=== PATIENT | male | born 1945 | race Caucasian/White ===

== ENCOUNTER → 2019-04-19 | Outpatient (CLI) | payer OTHER ==
--- NOTE | 2019-04-19 20:39 | Diagnostic Imaging Report ---
Indication: Chronic cough PA and lateral chest There are postop changes from a median sternotomy. There is a right pleural effusion with questionable consolidation in the right lower lung. 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 Impression: Right pleural effusion with questionable right basilar consolidation. This could be secondary to neoplasm or infection. Short-term followup is indicated. Dictated by: Dictated on workstation # [id number]
== END ==
LOC: RAD 15:18
PROVIDERS: ATTEND Nurse Practitioner Family
DX: J90 Pleural effusion, not elsewhere classified (principal); J30.9 Allergic rhinitis, unspecified; N28.9 Disorder of kidney and ureter, unspecified; Z98.890 Other specified postprocedural states
CPT/HCPCS: 71046

== ENCOUNTER 2019-12-09 09:02 | Emergency (ER) | payer OTHER ==
[~2019-12-09] VITALS: Ht 190 cm; Wt 123.1 kg
--- NOTE | 2019-12-09 09:43 | ED General ---
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 [place] 2 d ago today he feels numb all over his says he can't walk takes 30 minutes to move short distance he was apparently at a clinic getting his blood drawn today when he got weak and sort of slumped to the ground he was helped to the ground denies injury denies syncope no chest pain or shortness of breath no fevers no nausea vomiting diarrhea no focal neurologic deficits Allergies and Home Medications Allergies Coded Allergies: amlodipine (Verified Allergy, Unknown, 12/09/19) naproxen (Verified Allergy, Unknown, 12/09/19) niacin (Verified Allergy, Unknown, 12/09/19) pioglitazone (Verified Allergy, Unknown, 12/09/19) rosiglitazone (Verified Allergy, Unknown, 12/09/19) simvastatin (Verified Allergy, Unknown, 12/09/19) Patient Home Medication List Home Medication List Reviewed: Yes Review of Systems Review of Systems Constitutional: No fever; weakness EENTM: no symptoms reported Respiratory: no symptoms reported Cardiovascular: no symptoms reported; No chest pain, No palpitations Gastrointestinal: no symptoms reported; No diarrhea, No vomiting Genitourinary: no symptoms reported, other (says urine output unchanged and no dysuria) Musculoskeletal: no symptoms reported Skin: no symptoms reported Psychiatric/Neurological: No Symptoms Reported Past Ullpbnb-[id number]-Gicqml Hx Patient Social History Recent Foreign Travel: Yes Physical Exam Vital Signs Vital Signs - First Documented 12/09/19 09:20 Temp 36.1 Pulse 76 Resp 16 B/P (MAP) 168/74 (105) Pulse Ox 98 Capillary Refill : Height, Weight, BMI Height: '" Weight: lbs. oz. kg; BMI Method: General Appearance: No Apparent Distress, Chronically ill Eyes: Bilateral Eye PERRL, Bilateral Eye EOMI HEENT: Normal ENT Inspection, Other (tongue dry) Neck: Full Range of Motion, Supple Respiratory: Lungs Clear Cardiovascular: Regular Rate, Rhythm Gastrointestinal: Normal Bowel Sounds, Non Tender, Soft Extremity: Non Tender Neurologic/Psychiatric: Alert, Oriented x3, No Motor/Sensory Deficits, motor checker II- XII Norm as Tested; No Motor Weakness Progress/Results/Core Measures Suspected Sepsis SIRS Temperature: Pulse: Respiratory Rate: Laboratory Tests 12/09/19 09:42: White Blood Count 9.0 Blood Pressure / Mean: Laboratory Tests 12/09/19 09:42: Creatinine 3.06H, INR Comment 1.0, Platelet Count 286, Total Bilirubin < 0.2 Results/Orders Lab Results Laboratory Tests Test 12/09/19 09:42 Range/Units White Blood Count 9.0 4.3-11.0 10^3/uL Red Blood Count 3.99 L 4.35-5.85 10^6/uL Hemoglobin 10.9 L 13.3-17.7 G/DL Hematocrit 34 L 40-54 % Mean Corpuscular Volume 86 80-99 FL Mean Corpuscular Hemoglobin 27 25-34 PG Mean Corpuscular Hemoglobin Concent 32 32-36 G/DL Red Cell Distribution Width 14.6 H 10.0-14.5 % Platelet Count 286 130-400 10^3/uL Mean Platelet Volume 10.1 7.4-10.4 FL Neutrophils (%) (Auto) 72 42-75 % Lymphocytes (%) (Auto) 14 12-44 % Monocytes (%) (Auto) 7 0-12 % Eosinophils (%) (Auto) 4 0-10 % Basophils (%) (Auto) 1 0-10 % Neutrophils # (Auto) 6.5 1.8-7.8 X 10^3 Lymphocytes # (Auto) 1.3 1.0-4.0 X 10^3 Monocytes # (Auto) 0.6 0.0-1.0 X 10^3 Eosinophils # (Auto) 0.4 H 0.0-0.3 10^3/uL Basophils # (Auto) 0.1 0.0-0.1 10^3/uL Prothrombin Time 13.9 12.2-14.7 SEC INR Comment 1.0 0.8-1.4 Sodium Level 142 135-145 MMOL/L Potassium Level 4.8 3.6-5.0 MMOL/L Chloride Level 113 H 98-107 MMOL/L Carbon Dioxide Level 19 L 21-32 MMOL/L Anion Gap 10 5-14 MMOL/L Blood Urea Nitrogen 34 H 7-18 MG/DL Creatinine 3.06 H 0.60-1.30 MG/DL Estimat Glomerular Filtration Rate 20 BUN/Creatinine Ratio 11 Glucose Level 113 H 70-105 MG/DL Calcium Level 8.6 8.5-10.1 MG/DL Corrected Calcium 9.4 8.5-10.1 MG/DL Total Bilirubin < 0.2 0.1-1.0 MG/DL Aspartate Amino Transf (AST/SGOT) 13 5-34 U/L Alanine Aminotransferase (ALT/SGPT) 7 0-55 U/L Alkaline Phosphatase 106 40-136 U/L Total Protein 5.9 L 6.4-8.2 GM/DL Albumin 3.0 L 3.2-4.5 GM/DL My Orders Orders - KYRA BEE MD Iv Heplock-Insert (Order) (12/09/19 09:29) Cbc With Automated Diff (12/09/19 09:29) Comprehensive Metabolic Panel (12/09/19 09:29) Chest Pa/Lat (2 View) (12/09/19 09:29) Ekg Tracing (12/09/19 09:29) Monitor-Rhythm Ecg Trace Only (12/09/19 09:29) Protime With Inr (12/09/19 09:29) Orthostatic Vital Signs (Adult (12/09/19 09:44) Ct Head Wo (12/09/19 09:44) Ns Iv 1000 Ml (Sodium Chloride 0.9%) (12/09/19 10:15) Ns (Ivpb) (Sodium Chloride 0.9%) (12/09/19 10:10) Medications Given in ED Current Medications Medications Dose Ordered Sig/Margaret Route Start Time Stop Time Status Last Admin Dose Admin Sodium Chloride 250 ml @ ud STK-MED ONCE .ROUTE 12/09/19 10:10 12/09/19 10:16 DC 12/09/19 11:00 250 MLS/HR Vital Signs/I&O 12/09/19 12/09/19 09:20 10:39 Temp 36.1 Pulse 76 73 79 84 Resp 16 B/P (MAP) 168/74 (105) 167/77 (107) 180/79 (112) 127/73 (91) Pulse Ox 98 Capillary Refill : Progress Note : Progress Note Vitals are normal O2 sat normal EKG shows a sinus rhythm at 72 with no acute changes hemoglobin 10.9 which is patient's baseline white count 9000 chemistries actually show significant improvement with the BUN 34 creatinine 3.06 he's been running creatinines more around 4 Potassium 4.82 is decreased at 19 INR is 1.0 Chest x-ray shows cardiomegaly with postoperative changes and a right basilar pleural effusion CT head no acute findings pleural effusion is old creat is better K+ OK giving 250 NS IV (BP drops on standing) no reason for admission or further intervention Departure Impression Primary Impression: Weakness Additional Impressions: Renal failure Qualified Codes: N18.9 - Chronic kidney disease, unspecified Dehydration Disposition: 01 HOME, SELF-CARE Condition: Stable Departure-Patient Inst. Decision time for Depature: 11:25 Referrals: NO,LOCAL PHYSICIAN (PCP/Family) Primary Care Physician Patient Instructions: Generalized Weakness (DC), Kidney Failure, Dehydration, Adult (DC) KYRA BEE MD Dec 09, 2019 09:43
[2019-12-09 09:51] LABS: BASOPHILS % (AUTO) 1 % (0-10); EOSINOPHILS % (AUTO) 4 % (0-10); HEMATOCRIT 34 % (40-54); HEMOGLOBIN 10.9 G/DL (13.3-17.7); LYMPHOCYTES % (AUTO) 14 % (12-44); MEAN CORPUSCULAR HEMOGLOBIN 27 PG (25-34); MEAN CORPUSCULAR HGB CONC 32 G/DL (32-36); MEAN CORPUSCULAR VOLUME 86 FL (80-99); MEAN PLATELET VOLUME 10.1 FL (7.4-10.4); MONOCYTES % (AUTO) 7 % (0-12); NEUTROPHILS % (AUTO) 72 % (42-75); PLATELET COUNT 286 10^3/uL (130-400); RED CELL DISTRIBUTION WIDTH 14.6 % (10.0-14.5)
[2019-12-09 09:52] LABS: BASOPHILS # (AUTO) 0.1 10^3/uL (0.0-0.1); EOSINOPHILS # (AUTO) 0.4 10^3/uL (0.0-0.3); LYMPHOCYTES # (AUTO) 1.3 X 10^3 (1.0-4.0); MONOCYTES # (AUTO) 0.6 X 10^3 (0.0-1.0); NEUTROPHILS # (AUTO) 6.5 X 10^3 (1.8-7.8)
[2019-12-09 10:08] LABS: PROTHROMBIN TIME PATIENT 13.9 SEC (12.2-14.7)
[2019-12-09] MEDS ORDERED: NS (IVPB) 250 ML ONE (10:10)
--- NOTE | 2019-12-09 10:17 | Diagnostic Imaging Report ---
PROCEDURE: CT head without contrast. TECHNIQUE: Multiple contiguous axial images were obtained through the brain without the use of intravenous contrast. Auto Exposure Controls were utilized during the CT exam to meet ALARA standards for radiation dose reduction. INDICATION: Weakness. COMPARISON: No prior studies are available for comparison. FINDINGS: Ventricles and sulci are prominent consistent with cerebral atrophy. No sulcal effacement or midline shift is detected. No acute intra-axial or extra-axial hemorrhage is detected. Cisterns are patent. Visualized paranasal sinuses are clear. IMPRESSION: Cerebral atrophy. No acute intracranial process is detected. Dictated by: Dictated on workstation # [id number]
--- NOTE | 2019-12-09 10:19 | Diagnostic Imaging Report ---
INDICATION: Weakness. TIME OF EXAM: 10:07 a.m. COMPARISON: Correlation is made with prior chest from 04/19/2019. FINDINGS: The heart is enlarged but stable. Changes of median sternotomy are noted. Chronic pleural fluid or pleural thickening in the right base is again noted. Lungs appear to be clear. The pulmonary vascularity is unremarkable. There is no pneumothorax. IMPRESSION: Overall stable appearance of the chest when compared with prior exam from 04/19/2019. Dictated by: Dictated on workstation # [id number]
[2019-12-09 10:22] LABS: ALANINE AMINOTRANSFERASE 7 U/L (0-55); ALKALINE PHOSPHATASE 106 U/L (40-136); BILIRUBIN,TOTAL < 0.2 MG/DL (0.1-1.0); BUN/CREATININE RATIO 11; CALCIUM 8.6 MG/DL (8.5-10.1); CARBON DIOXIDE 19 MMOL/L (21-32); CHLORIDE 113 MMOL/L (98-107); CREATININE SERUM 3.06 MG/DL (0.60-1.30); GFR ESTIMATED 20; GLUCOSE 113 MG/DL (70-105); POTASSIUM 4.8 MMOL/L (3.6-5.0); SODIUM 142 MMOL/L (135-145); TOTAL PROTEIN 5.9 GM/DL (6.4-8.2)
[2019-12-09] MEDS: NS IV 1000 ML 1,000 ML IV ONE ×2 (10:38→11:16)
[2019-12-09 10:39] VITALS: BP_SYST 127; BP_SYST 167; BP_SYST 180; BP_DIAS 73; BP_DIAS 77; BP_DIAS 79
[2019-12-09 11:31] VITALS: BP 164/82
== END 2019-12-09 11:53 | disposition home or self-care (01) ==
LOC: EDUNIT# 09:02 → ER FS 09:04
DX: N19 Unspecified kidney failure (principal); E86.0 Dehydration; Z89.512 Acquired absence of left leg below knee; Z95.1 Presence of aortocoronary bypass graft; Z88.6 Allergy status to analgesic agent; Z88.8 Allergy status to other drugs, medicaments and biological substances
CPT/HCPCS: 36415; 70450; 71046; 80053; 85025; 85610; 93005; 93041

== ENCOUNTER → 2020-02-16 | Outpatient (CLI) | payer OTHER | LOC: LAB FS 20:23 | DX: I48.91 Unspecified atrial fibrillation (principal) ==

== ENCOUNTER → 2020-02-17 | Outpatient (CLI) | payer OTHER ==
[2020-02-17 17:21] LABS: INR 2.2 (0.8-1.4); PROTHROMBIN TIME PATIENT 25.8 SEC (12.2-14.7)
== END ==
LOC: LAB FS 16:58
PROVIDERS: ATTEND Internal Medicine
DX: I48.91 Unspecified atrial fibrillation (principal)
CPT/HCPCS: 36415; 85610

== ENCOUNTER → 2020-02-17 | Outpatient (CLI) | payer OTHER | LOC: LAB FS 14:13 | PROVIDERS: ATTEND Nurse Practitioner | DX: I48.91 Unspecified atrial fibrillation (principal) ==

== ENCOUNTER → 2020-03-03 | Outpatient (CLI) | payer OTHER ==
[2020-03-03 15:31] LABS: INR 1.9 (0.8-1.4); PROTHROMBIN TIME PATIENT 23.1 SEC (12.2-14.7)
== END ==
LOC: LAB FS 15:08
PROVIDERS: ATTEND Internal Medicine
DX: I48.0 Paroxysmal atrial fibrillation (principal)
CPT/HCPCS: 36415; 85610

== ENCOUNTER → 2020-03-31 | Outpatient (CLI) | payer OTHER ==
[2020-03-31 16:56] LABS: INR 2.1 (0.8-1.4); PROTHROMBIN TIME PATIENT 23.4 SEC (12.2-14.7)
== END ==
LOC: LAB FS 16:25
PROVIDERS: ATTEND Internal Medicine
DX: I48.92 Unspecified atrial flutter (principal)
CPT/HCPCS: 36415; 85610

== ENCOUNTER → 2020-05-01 | Outpatient (CLI) | payer OTHER ==
[2020-05-01 13:36] LABS: INR 2.7 (0.8-1.4); PROTHROMBIN TIME PATIENT 29.1 SEC (12.2-14.7)
== END ==
LOC: LAB FS 13:05
PROVIDERS: ATTEND Internal Medicine
DX: I48.0 Paroxysmal atrial fibrillation (principal)
CPT/HCPCS: 36415; 85610

== ENCOUNTER → 2020-05-30 | Outpatient (CLI) | payer OTHER ==
[2020-05-30 16:45] LABS: INR 4.3 (0.8-1.4); PROTHROMBIN TIME PATIENT 41.1 SEC (12.2-14.7)
== END ==
LOC: LAB FS 05-29 14:51
PROVIDERS: ATTEND Internal Medicine
DX: I48.0 Paroxysmal atrial fibrillation (principal); Z79.01 Long term (current) use of anticoagulants
CPT/HCPCS: 36415; 85610

== ENCOUNTER → 2020-06-07 | Outpatient (CLI) | payer OTHER ==
[2020-06-07 19:56] LABS: PROTHROMBIN TIME PATIENT 13.9 SEC (12.2-14.7)
== END ==
LOC: LAB FS 15:27
PROVIDERS: ATTEND Internal Medicine
DX: I48.0 Paroxysmal atrial fibrillation (principal); Z79.01 Long term (current) use of anticoagulants
CPT/HCPCS: 36415; 85610

== ENCOUNTER → 2020-06-14 | Outpatient (CLI) | payer OTHER ==
[2020-06-14 12:43] LABS: INR 1.2 (0.8-1.4); PROTHROMBIN TIME PATIENT 15.2 SEC (12.2-14.7)
== END ==
LOC: LAB FS 11:58
PROVIDERS: ATTEND Internal Medicine
DX: I48.0 Paroxysmal atrial fibrillation (principal); Z79.01 Long term (current) use of anticoagulants
CPT/HCPCS: 36415; 85610

== ENCOUNTER → 2020-06-20 | Outpatient (CLI) | payer OTHER ==
[2020-06-20 17:03] LABS: INR 1.4 (0.8-1.4); PROTHROMBIN TIME PATIENT 17.4 SEC (12.2-14.7)
== END ==
LOC: LAB FS 16:41
PROVIDERS: ATTEND Internal Medicine
DX: Z01.89 Encounter for other specified special examinations (principal); Z79.01 Long term (current) use of anticoagulants
CPT/HCPCS: 36415; 85610

== ENCOUNTER → 2020-07-01 | Outpatient (CLI) | payer OTHER ==
[2020-07-01 15:50] LABS: INR 3.4 (0.8-1.4)
== END ==
LOC: LAB FS 15:14
PROVIDERS: ATTEND Family Medicine
DX: Z79.01 Long term (current) use of anticoagulants (principal)
CPT/HCPCS: 36415; 85610

== ENCOUNTER → 2020-07-04 | Outpatient (CLI) | payer OTHER ==
[2020-07-04 19:13] LABS: INR 1.1 (0.8-1.4); PROTHROMBIN TIME PATIENT 14.2 SEC (12.2-14.7)
== END ==
LOC: LAB FS 16:22
PROVIDERS: ATTEND Internal Medicine
DX: I48.0 Paroxysmal atrial fibrillation (principal)
CPT/HCPCS: 36415; 85610

== ENCOUNTER → 2020-07-12 | Outpatient (CLI) | payer OTHER ==
[2020-07-12 11:28] LABS: INR 1.1 (0.8-1.4); PROTHROMBIN TIME PATIENT 14.1 SEC (12.2-14.7)
== END ==
LOC: LAB FS 10:46
PROVIDERS: ATTEND Internal Medicine
DX: I48.0 Paroxysmal atrial fibrillation (principal)
CPT/HCPCS: 36415; 85610

== ENCOUNTER → 2020-07-25 | Outpatient (CLI) | payer OTHER ==
[2020-07-25 15:55] LABS: PROTHROMBIN TIME PATIENT 13.8 SEC (12.2-14.7)
== END ==
LOC: LAB FS 15:29
PROVIDERS: ATTEND Internal Medicine
DX: I48.0 Paroxysmal atrial fibrillation (principal); Z79.01 Long term (current) use of anticoagulants
CPT/HCPCS: 36415; 85610

== ENCOUNTER → 2020-08-01 | Outpatient (CLI) | payer OTHER ==
[2020-08-01 15:03] LABS: INR 2.6 (0.8-1.4); PROTHROMBIN TIME PATIENT 27.8 SEC (12.2-14.7)
== END ==
LOC: LAB FS 14:07
PROVIDERS: ATTEND Internal Medicine
DX: I48.0 Paroxysmal atrial fibrillation (principal); Z79.01 Long term (current) use of anticoagulants
CPT/HCPCS: 36415; 85610

== ENCOUNTER → 2020-08-09 | Outpatient (CLI) | payer OTHER ==
[2020-08-09 16:41] LABS: INR 4.9 (0.8-1.4); PROTHROMBIN TIME PATIENT 45.6 SEC (12.2-14.7)
== END ==
LOC: LAB FS 14:25
PROVIDERS: ATTEND Internal Medicine
DX: I48.0 Paroxysmal atrial fibrillation (principal); Z79.01 Long term (current) use of anticoagulants
CPT/HCPCS: 36415; 85610